=== PATIENT | male | born 1955 | race Hispanic/Latino ===

== ENCOUNTER 2019-07-10 19:16 | Emergency (ER) | payer OTHER ==
--- NOTE | 2019-07-10 22:27 | ULT ---
EXAM: Left lower extremity venous duplex ultrasound with color and spectral Doppler imaging: HISTORY: Left lower 70 pain and edema COMPARISON: None FINDINGS: Exam was limited, patient cannot whole leg still. Exam performed from the groin to the ankle including the visualized greater saphenous, common femoral , superficial femoral, profunda femoral, popliteal, trifurcation, and posterior tibial veins. There is phasic flow with normal compressibility and normal augmentation at all examined levels. No evidence for intraluminal thrombus. IMPRESSION: No evidence for deep venous thrombosis.
[2019-07-10] MEDS ORDERED: Ondansetron PF 4 MG/2 ML Vial ONE (22:31)
== END 2019-07-11 06:37 ==
LOC: ERS 19:16
DX: M79.89 Other specified soft tissue disorders (principal); E11.22 Type 2 diabetes mellitus with diabetic chronic kidney disease; N18.6 End stage renal disease; I12.0 Hypertensive chronic kidney disease with stage 5 chronic kidney disease or end stage renal disease; Z89.611 Acquired absence of right leg above knee
CPT/HCPCS: J2405